=== PATIENT | male | born 1995 | race African-American/Black ===

== ENCOUNTER 2017-09-10 13:19 | Emergency (ER) | payer OTHER ==
[~2017-09-10 13:19] MED LIST: IBUP800T23 PO
[2017-09-10 13:29] VITALS: BP 145/66; PULSE 76; RESP 16; TEMP 97.7; O2SAT 99
[2017-09-10] MEDS ORDERED: FLUT1SPR5 EACH NARE (13:40)
[2017-09-10] MEDS ORDERED: AMOX875T PO (13:40)
--- NOTE | 2017-09-10 13:46 | PD ---
HPI Chief Complaint: ENT Complaint Time Seen by Provider: 13:35 Travel History International Travel<30 days: No Contact w/Intl Traveler<30days: No Traveled to known affect area: No History of Present Illness HPI 22-year-old -[place] male with 3 day history of upper respiratory congestion, cough, and sore throat. Patient states the first 2 days he had fever and cough. Now his chief complaint is sore throat. He denies significant headache but has had congestion and postnasal drip. No ear pain. Patient denies chest congestion, wheezing, or chest pain. No nausea, vomiting, or heartburn. PFSH Past Medical History Medical History: Denies Significant Hx Tetanus Vaccination: < 5 Years Past Surgical History Surgical History: No Previous Surgery Social History Alcohol Use: No Tobacco Use: No Substance Use: No Allergies-Medications (Allergen,Severity, Reaction): Coded Allergies: No Known Allergies (Unverified Adverse Reaction, Unknown, 09/10/17) Reported Meds & Prescriptions Reported Meds & Active Scripts Active Flonase Nasal Story (Fluticasone Nasal Story) 50 Mcg/Act Story 100 Mcg EACH NARE BID Amoxicillin 875 Mg Tab 875 Mg PO BID 10 Days Review of Systems Except as stated in HPI: all other systems reviewed are Neg General / Constitutional: Positive: Fever, Chills Eyes: No: Visual changes HENT: Positive: Headaches, Sore Throat, Rhinitis, Rhinorrhea, Congestion, No: Vertigo, Lightheadedness, Nosebleed, Neck Stiffness, Neck Pain, Dental Difficulties, Earache Cardiovascular: No: Chest Pain or Discomfort Respiratory: Positive: Cough, No: Shortness of Breath, Wheezing, Sneezing Gastrointestinal: No: Nausea, Vomiting, Diarrhea, Abdominal Pain Genitourinary: No: Dysuria Musculoskeletal: No: Pain Skin: No Rash Neurologic: No: Weakness Psychiatric: No: Depression Endocrine: No: Polydipsia Hematologic/Lymphatic: No: Easy Bruising Physical Exam Narrative GENERAL: Patient appears in no obvious distress SKIN: Warm and dry. Normal color. Normal turgor. No rash HEAD: Atraumatic. Normocephalic. EYES: Pupils equal and round. No scleral icterus. No injection or drainage. ENT: No nasal bleeding or discharge. Mucous membranes pink and moist. TMs are somewhat dull bilaterally with mild injection. Patient has sinus tenderness in the maxillary sinuses. Posterior pharynx appears erythematous and injected with cobblestoning and postnasal drip noted. NECK: Trachea midline. Supple without significant lymphadenopathy CARDIOVASCULAR: Regular rate and rhythm. RESPIRATORY: No accessory muscle use. Clear to auscultation. Breath sounds equal bilaterally. MUSCULOSKELETAL: Extremities without clubbing, cyanosis, or edema. No obvious deformities. NEUROLOGICAL: Awake and alert. No obvious cranial nerve deficits. Motor grossly within normal limits. Five out of 5 muscle strength in the arms and legs. Normal speech. PSYCHIATRIC: Appropriate mood and affect; insight and judgment normal. Data Data Last Documented VS Vital Signs Date Time Temp Pulse Resp B/P (MAP) Pulse Ox O2 Delivery O2 Flow Rate FiO2 09/10/17 13:29 97.7 76 16 145/66 (92) 99 MDM Medical Decision Making Medical Screen Exam Complete: Yes Emergency Medical Condition: Yes Differential Diagnosis Upper respiratory infection. Sinusitis. Pharyngitis Narrative Course Patient treated with amoxicillin 875 twice daily 10 days. Patient given Flonase nasal spray 2 sprays each nostril daily. Patient is encouraged to use ice chips and salt water gargles for throat pain. Patient to use Tylenol and ibuprofen as needed Follow-up if symptoms do not improve. Diagnosis Primary Impression: Pharyngitis Qualified Codes: J02.9 - Acute pharyngitis, unspecified Patient Instructions: General Instructions, Pharyngitis (DC) Additional Instructions: Patient treated with amoxicillin 875 twice daily 10 days. Patient given Flonase nasal spray 2 sprays each nostril daily. Patient is encouraged to use ice chips and salt water gargles for throat pain. Patient to use Tylenol and ibuprofen as needed Follow-up if symptoms do not improve. Med/Other Pt SpecificInfo: Prescription(s) given Scripts Fluticasone Nasal Story (Flonase Nasal Story) 50 Mcg/Act Story 100 MCG EACH NARE BID for Allergies, #1 BOTTLE 0 Refills Prov: Kevin Basurto MD 09/10/17 Amoxicillin (Amoxicillin) 875 Mg Tab 875 MG PO BID for Infection for 10 Days, #20 TAB 0 Refills Prov: Kevin Basurto MD 09/10/17 Disposition: 01 DISCHARGE HOME Condition: Stable Rojelio Goldberg Sep 10, 2017 13:46
== END 2017-09-10 13:52 | disposition home or self-care (01) ==
LOC: NEPK 13:19
DX: J02.9 Acute pharyngitis, unspecified (principal)
CPT/HCPCS: 99283